=== PATIENT | male | born 1990 | race Caucasian/White ===

== ENCOUNTER 2017-09-07 14:03 | Emergency (ER) | payer SELFPAY ==
[2017-09-07] MEDS ORDERED: ALBUTEROL 2.5 MG/3 ML NEB SOL ONE (17:03)
[2017-09-07] MEDS ORDERED: CEFTRIAXONE 1000 MG/VIAL ONE (17:03)
[2017-09-07] MEDS ORDERED: ONDANSETRON 4 MG (ODT) TAB ONE (17:04)
--- NOTE | 2017-09-07 17:22 | ER ---
Nurse's Notes [facility] Name: Doron Olivera Age: 27 yrs Sex: Male : 1990 Arrival Date: 09/07/2017 Time: 14:07 Bed 12 Private MD: None, None Diagnosis: Pneumonia, unspecified organism Presentation: 09/07 14:27 Presenting complaint: Patient states: woke up Thursday with fever and body aches, hasn't iw stopped since then, also is vomiting and having diarrhea and cough. Transition of care: patient was not received from another setting of care. Onset of symptoms was September 04, 2017. Risk Assessment: Do you want to hurt yourself or someone else? Patient reports no desire to harm self or others. Initial Sepsis Screen: Does the patient meet any 2 criteria? No. Patient's initial sepsis screen is negative. Does the patient have a suspected source of infection? No. Patient's initial sepsis screen is negative. Care prior to arrival: None. 14:27 Method Of Arrival: Ambulatory iw 14:27 Acuity: DANDRE 3 iw Historical: - Allergies: 14:29 NKA; iw - Home Meds: 14:29 None [Active]; iw - PMHx: 14:29 Asthma; iw - PSHx: 14:29 Appendectomy; Knee surgery; iw - Immunization history:: Adult Immunizations not immunized. - Social history:: Smoking status: Patient uses tobacco products, smokes one pack cigarettes per day. - Ebola Screening: : Patient negative for fever greater than or equal to 101.5 degrees Fahrenheit, and additional compatible Ebola Virus Disease symptoms Patient denies exposure to infectious person Patient denies travel to an Ebola-affected area in the 21 days before illness onset No symptoms or risks identified at this time. Screenin:29 Abuse screen: Denies threats or abuse. Denies injuries from another. iw 14:29 Nutritional screening: No deficits noted. iw 16:55 Tuberculosis screening: No symptoms or risk factors identified. aj1 18:00 Fall Risk None identified. aj1 Assessment: 16:55 General: Appears in no apparent distress. uncomfortable, Behavior is calm, cooperative, aj1 appropriate for age. Pain: Complains of pain in generalized body aches Pain does not radiate. Pain currently is 8 out of 10 on a pain scale. Quality of pain is described as aching. Neuro: Level of Consciousness is awake, alert, obeys commands, Oriented to person, place, time, situation. Cardiovascular: Heart tones S1 S2 present Patient's skin is warm and dry. Respiratory: Reports cough that is persistent Airway is patent Respiratory effort is even, unlabored, Respiratory pattern is regular, symmetrical, Breath sounds with wheezes in right upper lobe. GI: Abdomen is non-distended, Bowel sounds present X 4 quads. Abd is soft and non tender X 4 quads. Reports nausea, vomiting. : No signs and/or symptoms were reported regarding the genitourinary system. EENT: Reports sinus congestion, sore throat, ear pain. Derm: No signs and/or symptoms reported regarding the dermatologic system. Skin is pink, warm \T\ dry. normal. Musculoskeletal: No signs and/or symptoms reported regarding the musculoskeletal system. Circulation, motion, and sensation intact. 18:00 Reassessment: Patient appears in no apparent distress at this time. No changes from aj1 previously documented assessment. Patient and/or family updated on plan of care and expected duration. Pain level reassessed. Patient is alert, oriented x 3, equal unlabored respirations, skin warm/dry/pink. Vital Signs: 14:28 BP 121 / 69; Pulse 105; Resp 18 S; Temp 99.1(TE); Pulse Ox 97% on R/A; Weight 81.65 kg; iw Height 5 ft. 11 in. (180.34 cm); Pain 8/10; 16:39 BP 116 / 68; Resp 16; Temp 99.8(TE); iw 17:15 Pulse 92; Pulse Ox 96% on R/A; aj1 14:28 Body Mass Index 25.10 (81.65 kg, 180.34 cm) iw ED Course: 14:07 Patient arrived in ED. mr 14:07 None, None is Private Physician. mr 14:28 Triage completed. iw 14:28 Arm band placed on. iw 16:37 Codie Leal, RN is Primary Nurse. iw 16:39 Edel Luna FNP-C is PHCP. snw 16:39 Armando Lagunas MD is Attending Physician. snw 16:55 Patient has correct armband on for positive identification. Call light in reach. aj1 16:55 No provider procedures requiring assistance completed. aj1 16:57 Patient moved to radiology via wheelchair. kc2 16:57 X-ray completed. Patient tolerated procedure well. kc2 16:57 Patient moved back from radiology. kc2 16:58 Chest Pa And Lat (2 Views) XRAY In Process Unspecified. EDMS 18:00 Patient did not have IV access during this emergency room visit. aj1 Administered Medications: 17:13 Drug: Rocephin (cefTRIAXone) 1 grams Route: IM; Site: right gluteus; aj1 17:14 Drug: Albuterol 2.5 mg Route: Inhalation; aj1 17:14 Drug: Zofran 4 mg Route: PO; aj1 Outcome: 17:22 Discharge ordered by . snw 18:37 Discharged to home ambulatory. aj1 18:37 Condition: good 18:37 Discharge instructions given to patient, Instructed on discharge instructions, follow up and referral plans. medication usage, Demonstrated understanding of instructions, follow-up care, medications, Prescriptions given X 4. 18:38 Patient left the ED. aj1 Signatures: Dispatcher [employer] EDKY Ligia Garcia, RN RN aj1 Edel Luna, BRICKLAYER TENDER-C BRICKLAYER TENDER-Csnw Vicky Velez Irene, RN Lacy Everett2
--- NOTE | 2017-09-07 17:22 | EDPHYS ---
Physician Documentation [facility] Name: Doron Olivera Age: 27 yrs Sex: Male : 1990 Arrival Date: 09/07/2017 Time: 14:07 Bed 12 Private MD: None, None ED Physician Armando Lagunas HPI: 09/07 16:51 This 27 yrs old Male presents to ER via Ambulatory with complaints of Fever, snw Vomiting/Diarrhea. 16:51 The patient reports fever, that was measured at 101 degrees Fahrenheit. Onset: The snw symptoms/episode began/occurred suddenly, and became persistent. Associated signs and symptoms: Pertinent positives: chills, cough, decreased appetite, earache, myalgias, nausea, sinus congestion, sore throat. Severity of symptoms: At their worst the symptoms were moderate. The patient has not experienced similar symptoms in the past, but family has similar symptoms, daughter. The patient has not recently seen a physician. Historical: - Allergies: 14:29 NKA; iw - Home Meds: 14:29 None [Active]; iw - PMHx: 14:29 Asthma; iw - PSHx: 14:29 Appendectomy; Knee surgery; iw - Immunization history:: Adult Immunizations not immunized. - Social history:: Smoking status: Patient uses tobacco products, smokes one pack cigarettes per day. - Ebola Screening: : Patient negative for fever greater than or equal to 101.5 degrees Fahrenheit, and additional compatible Ebola Virus Disease symptoms Patient denies exposure to infectious person Patient denies travel to an Ebola-affected area in the 21 days before illness onset No symptoms or risks identified at this time. ROS: 16:49 Eyes: Negative for injury, pain, redness, and discharge. snw 16:49 Neck: Negative for injury, pain, and swelling. 16:49 Cardiovascular: Negative for chest pain, palpitations, and edema. 16:49 Back: Negative for injury and pain, : Negative for injury, bleeding, discharge, and swelling, MS/Extremity: Negative for injury and deformity, Skin: Negative for injury, rash, and discoloration, Neuro: Negative for headache, weakness, numbness, tingling, and seizure. 16:49 Constitutional: Positive for fatigue, fever, malaise. 16:49 ENT: Positive for ear pain, sinus congestion, sore throat. 16:49 Respiratory: Positive for cough. 16:49 Abdomen/GI: Positive for nausea and vomiting. Exam: 16:44 Head/Face: Normocephalic, atraumatic. Eyes: Pupils equal round and reactive to light, snw extra-ocular motions intact. Lids and lashes normal. Conjunctiva and sclera are non-icteric and not injected. Cornea within normal limits. Periorbital areas with no swelling, redness, or edema. 16:44 Neck: Trachea midline, no thyromegaly or masses palpated, and no cervical lymphadenopathy. Supple, full range of motion without nuchal rigidity, or vertebral point tenderness. No Meningismus. Chest/axilla: Normal chest wall appearance and motion. Nontender with no deformity. No lesions are appreciated. 16:44 Abdomen/GI: Soft, non-tender, with normal bowel sounds. No distension or tympany. No guarding or rebound. No evidence of tenderness throughout. Back: No spinal tenderness. No costovertebral tenderness. Full range of motion. Skin: Warm, dry with normal turgor. Normal color with no rashes, no lesions, and no evidence of cellulitis. MS/ Extremity: Pulses equal, no cyanosis. Neurovascular intact. Full, normal range of motion. Neuro: Awake and alert, GCS 15, oriented to person, place, time, and situation. Cranial nerves II-XII grossly intact. Motor strength 5/5 in all extremities. Sensory grossly intact. Cerebellar exam normal. Normal gait. 16:44 Constitutional: The patient appears alert, awake, uncomfortable. 16:44 ENT: TM's: erythema, that is moderate, bilaterally, Nose: is normal, Mouth: is normal, Posterior pharynx: erythema, that is moderate, Voice: is normal. 16:44 Cardiovascular: Rate: tachycardic. 16:44 Respiratory: the patient does not display signs of respiratory distress, Respirations: normal, Breath sounds: wheezing: that is moderate, is heard in the right upper lobe, bronchitic cough. Vital Signs: 14:28 BP 121 / 69; Pulse 105; Resp 18 S; Temp 99.1(TE); Pulse Ox 97% on R/A; Weight 81.65 kg; iw Height 5 ft. 11 in. (180.34 cm); Pain 8/10; 16:39 BP 116 / 68; Resp 16; Temp 99.8(TE); iw 17:15 Pulse 92; Pulse Ox 96% on R/A; aj1 14:28 Body Mass Index 25.10 (81.65 kg, 180.34 cm) iw MDM: 16:39 Patient medically screened. snw 17:46 Data reviewed: vital signs, nurses notes. Data interpreted: Pulse oximetry: on room air snw is 96 %. Interpretation: acceptable. Counseling: I had a detailed discussion with the patient and/or guardian regarding: the historical points, exam findings, and any diagnostic results supporting the discharge/admit diagnosis, radiology results, the need for outpatient follow up, to return to the emergency department if symptoms worsen or persist or if there are any questions or concerns that arise at home. Special discussion: Based on the history and exam findings, there is no indication for further emergent testing or inpatient evaluation. I discussed with the patient/guardian the need to see the primary care provider for further evaluation of the symptoms. 09/07 16:44 Order name: Chest Pa And Lat (2 Views) XRAY; Complete Time: 17:29 snw Administered Medications: 17:13 Drug: Rocephin (cefTRIAXone) 1 grams Route: IM; Site: right gluteus; aj1 17:14 Drug: Albuterol 2.5 mg Route: Inhalation; aj1 17:14 Drug: Zofran 4 mg Route: PO; aj1 Disposition: 09/08 08:19 Co-signature as Attending Physician, Armando Lagunas MD I agree with the assessment and joon plan of care. Disposition: 09/07/17 17:22 Discharged to Home. Impression: Pneumonia, unspecified organism. - Condition is Stable. - Discharge Instructions: Acute Bronchitis, Nausea and Vomiting, [id number], Cough, Adult, Rehydration, Adult. - Prescriptions for Augmentin 875- 125 mg Oral Tablet - take 1 tablet by ORAL route every 12 hours for 10 days; 20 tablet. Zyrtec 10 mg Oral Tablet - take 1 tablet by ORAL route once daily As needed; 20 tablet. Albuterol Sulfate 90 mcg/actuation - inhale 1-2 puff by INHALATION route every 4-6 hours; 1 Inhaler. promethazine 25 mg Oral Tablet - take 1 tablet by ORAL route every 6 hours As needed; 20 tablet. - Medication Reconciliation Form, Thank You Letter, Antibiotic Education, Prescription Opioid Use form. - Follow up: Private Physician; When: 2 - 3 days; Reason: Recheck today's complaints, Continuance of care, Re-evaluation by your physician. Follow up: Emergency Department; When: As needed; Reason: Worsening of condition. Signatures: Dispatcher [employer] EDLigia Cox RN RN aj1 Armando Lagunas MD MD cha Therrien, Shelly, NEEDLE GRADER-C NEEDLE GRADER-Csnw Codie Leal RN RN iw Corrections: (The following items were deleted from the chart) 09/07 18:38 17:22 09/07/2017 17:22 Discharged to Home. Impression: Pneumonia, unspecified organism. aj1 Condition is Stable. Forms are Medication Reconciliation Form, Thank You Letter, Antibiotic Education, Prescription Opioid Use. Follow up: Private Physician; When: 2 - 3 days; Reason: Recheck today's complaints, Continuance of care, Re-evaluation by your physician. Follow up: Emergency Department; When: As needed; Reason: Worsening of condition. snw
--- NOTE | 2017-09-07 17:28 | RAD REPORT ---
EXAM DESCRIPTION: RAD - Chest Pa And Lat (2 Views) - 09/07/2017 5:00 pm CLINICAL HISTORY: Fever, body aches, cough COMPARISON: None. TECHNIQUE: PA and lateral views of the chest were obtained. FINDINGS: The lungs are clear. Heart size is normal and central vasculature is within normal limit s. No pleural effusion or pneumothorax seen. No acute bony finding noted. No aortic abnormality. IMPRESSION: No acute cardiopulmonary process.
[2017-09-07 18:42] VITALS: BP 116/68; TEMP 99.8
[2017-09-07 18:43] VITALS: O2SAT 96
== END 2017-09-07 18:38 | disposition home or self-care (01) ==
LOC: ER 14:03
DX: J18.9 Pneumonia, unspecified organism (principal); J45.909 Unspecified asthma, uncomplicated; F17.210 Nicotine dependence, cigarettes, uncomplicated
CPT/HCPCS: 71046; 96372; 99284

== ENCOUNTER 2018-10-18 20:55 | Emergency (ER) | payer SELFPAY ==
[2018-10-18] MEDS ORDERED: BUPIVACAINE 0.5% PF 10 ML VIAL ONE (21:39)
[2018-10-18] MEDS ORDERED: LIDOCAINE 2% W/EPI 1:200,000 MPF 20 ML VIAL IM ONE (21:39)
--- NOTE | 2018-10-18 21:46 | ER ---
Nurse's Notes [facility] Name: Doron Olivera Age: 28 yrs Sex: Male : 1990 Arrival Date: 10/18/2018 Time: 20:59 Bed 24 Private MD: Diagnosis: Right ear pain;dental caries Presentation: 10/18 21:30 Presenting complaint: Patient states: Pain to right ear, severe pain to left upper part lp1 of mouth, dental pain; Patient states plan to have tooth pulled. Transition of care: patient was not received from another setting of care. Onset of symptoms was October 18, 2018. Risk Assessment: Do you want to hurt yourself or someone else? Patient reports no desire to harm self or others. Initial Sepsis Screen: Does the patient meet any 2 criteria? No. Patient's initial sepsis screen is negative. Does the patient have a suspected source of infection? No. Patient's initial sepsis screen is negative. Care prior to arrival: None. 21:30 Method Of Arrival: Ambulatory lp1 21:30 Acuity: DANDRE 4 lp1 Historical: - Allergies: 21:33 NKA; lp1 - Home Meds: 21:33 Albuterol Inhl [Active]; lp1 - PMHx: 21:33 Asthma; lp1 - PSHx: 21:33 Appendectomy; Knee surgery; lp1 - Immunization history:: Adult Immunizations up to date. - Social history:: Smoking status: Patient uses tobacco products, smokes one pack cigarettes per day. - Ebola Screening: : No symptoms or risks identified at this time. Screenin:34 Abuse screen: Denies threats or abuse. Denies injuries from another. Nutritional lp1 screening: No deficits noted. Tuberculosis screening: No symptoms or risk factors identified. Fall Risk None identified. Assessment: 21:33 General: Appears uncomfortable, Behavior is calm, cooperative, appropriate for age. lp1 Pain: Complains of pain in upper left second molar Pain currently is 10 out of 10 on a pain scale. Quality of pain is described as sharp, stabbing. Neuro: No deficits noted. Cardiovascular: No deficits noted. Respiratory: No deficits noted. GI: No deficits noted. : No deficits noted. EENT: Oral mucosa is moist. Dental caries noted in upper left second molar (#15) Reports pain in upper left second molar. Derm: Skin is pink, warm \T\ dry. Musculoskeletal: No deficits noted. 22:01 Reassessment: Patient appears in no apparent distress at this time. Patient is alert, ca1 oriented x 3, equal unlabored respirations, skin warm/dry/pink. Patient states feeling better. Vital Signs: 21:32 BP 130 / 93; Pulse 88; Resp 16; Temp 99(O); Pulse Ox 100% on R/A; Weight 90.72 kg; lp1 Height 5 ft. 11 in. (180.34 cm); Pain 10/10; 22:01 BP 138 / 86; Pulse 83; Resp 17 S; Pulse Ox 100% on R/A; ca1 21:32 Body Mass Index 27.89 (90.72 kg, 180.34 cm) lp1 ED Course: 20:59 Patient arrived in ED. es 21:09 Jason Berrios MD is Attending Physician. ps1 21:12 Attending Physician role handed off by Jason Berrios MD [facility] 21:12 Armando Lagunas MD is Attending Physician. [facility] 21:30 Sharon Childers, RN is Primary Nurse. lp1 21:31 Triage completed. lp1 21:34 Patient has correct armband on for positive identification. lp1 21:34 Assist provider with nerve block (dental) Set up for procedure. Performed by Jason Berrios MD Patient tolerated well. Patient did not have IV access during this emergency room visit. 21:35 Arm band placed on. lp1 21:38 Attending Physician role handed off by Armando Lagunas MD [facility] 21:38 Jason Berrios MD is Attending Physician. ps1 Administered Medications: 21:32 Drug: Lidocaine-Epinephrine -2 % (1:100,000) 10 ml Route: Infiltration; lp1 21:32 Drug: Bupivacaine (0.5 %) 1 vials Volume: 10 ml; Route: Infiltration; lp1 Outcome: 21:45 Discharge ordered by . ps1 22:02 Discharged to home ambulatory, with significant other. ca1 22:02 Condition: stable 22:02 Discharge instructions given to patient, Instructed on discharge instructions, follow up and referral plans. medication usage, Demonstrated understanding of instructions, follow-up care, medications, Prescriptions given X 3. 22:02 Patient left the ED. ca1 Signatures: Armando Lagunas MD MD cha Salyer, Edna es Pena, Laura MANPREET RN lp1 Jason Berrios MD MD ps1 Fern Barrios RN RN ca1 Corrections: (The following items were deleted from the chart) 21:33 Pain: Complains of pain in upper left second molar Pain currently is 10 out of 10 lp1 on a pain scale. Quality of pain is described as sharp, stabbing, lp1 35 21:33 EENT: Oral mucosa is moist. Dental caries noted in upper left second molar (#15) lp1 lp1
--- NOTE | 2018-10-18 21:46 | EDPHYS ---
Physician Documentation [facility] Name: Doron Olivera Age: 28 yrs Sex: Male : 1990 Arrival Date: 10/18/2018 Time: 20:59 Bed 24 Private MD: ED Physician Jason Berrios HPI: 10/18 21:38 This 28 yrs old Male presents to ER via Ambulatory with complaints of ps1 Toothache, Ear Pain. 21:38 patient has pain to upper left molar and left ear. No popping or MARKEL. Has a history of ps1 poor dentition. No fever or drainage. Pain rated as moderate. Worse with hot and cold. . Historical: - Allergies: 21:33 NKA; lp1 - Home Meds: 21:33 Albuterol Inhl [Active]; lp1 - PMHx: 21:33 Asthma; lp1 - PSHx: 21:33 Appendectomy; Knee surgery; lp1 - Immunization history:: Adult Immunizations up to date. - Social history:: Smoking status: Patient uses tobacco products, smokes one pack cigarettes per day. - Ebola Screening: : No symptoms or risks identified at this time. ROS: 21:38 Constitutional: Negative for fever, chills, and weight loss, Eyes: Negative for injury, ps1 pain, redness, and discharge, Cardiovascular: Negative for chest pain, palpitations, and edema, Respiratory: Negative for shortness of breath, cough, wheezing, and pleuritic chest pain, Abdomen/GI: Negative for abdominal pain, nausea, vomiting, diarrhea, and constipation, MS/Extremity: Negative for injury and deformity, Skin: Negative for injury, rash, and discoloration, Neuro: Negative for headache, weakness, numbness, tingling, and seizure. 21:38 ENT: Positive for dental pain, ear pain. Exam: 21:38 Constitutional: This is a well developed, well nourished patient who is awake, alert, ps1 and in no acute distress. Head/Face: Normocephalic, atraumatic. Eyes: Pupils equal round and reactive to light, extra-ocular motions intact. Lids and lashes normal. Conjunctiva and sclera are non-icteric and not injected. Chest/axilla: Normal chest wall appearance and motion. Nontender with no deformity. No lesions are appreciated. Cardiovascular: Regular rate and rhythm. No gallops, murmurs, or rubs. Normal PMI, no JVD. No pulse deficits. Respiratory: Lungs have equal breath sounds bilaterally, clear to auscultation and percussion. No rales, rhonchi or wheezes noted. No increased work of breathing, no retractions or nasal flaring. Abdomen/GI: Soft, non-tender, with normal bowel sounds. No distension or tympany. No guarding or rebound. No evidence of tenderness throughout. MS/ Extremity: Pulses equal, no cyanosis. Neurovascular intact. Full, normal range of motion. Neuro: Awake and alert, GCS 15, oriented to person, place, time, and situation. Cranial nerves II-XII grossly intact. Sensory grossly intact. 21:38 ENT: External ear(s): are unremarkable, Ear canal(s): are normal, TM's: erythema, that is mild, on the right, Dental exam: dental caries, that is moderate, diffusely, fractured teeth are noted, specifically the upper left first molar (#14) and upper left second molar (#15). Vital Signs: 21:32 BP 130 / 93; Pulse 88; Resp 16; Temp 99(O); Pulse Ox 100% on R/A; Weight 90.72 kg; lp1 Height 5 ft. 11 in. (180.34 cm); Pain 10/10; 22:01 BP 138 / 86; Pulse 83; Resp 17 S; Pulse Ox 100% on R/A; ca1 21:32 Body Mass Index 27.89 (90.72 kg, 180.34 cm) lp1 Procedures: 21:38 Nerve block: (dental) of periapical block, superior alveolar nerve left. Medication: ps1 Lidocaine 2% with epinephrine, Marcaine 0.5%, Amount: 4 mls were injected, Effect: the patient has resolution of the pain, Performed by Jason Berrios MD Patient tolerated well. MDM: 21:19 Patient medically screened. [facility] 21:38 Data reviewed: vital signs, nurses notes, and as a result, I will discharge patient. ps1 Counseling: I had a detailed discussion with the patient and/or guardian regarding: the historical points, exam findings, and any diagnostic results supporting the discharge/admit diagnosis, the need for outpatient follow up, to return to the emergency department if symptoms worsen or persist or if there are any questions or concerns that arise at home. Administered Medications: 21:32 Drug: Lidocaine-Epinephrine -2 % (1:100,000) 10 ml Route: Infiltration; lp1 21:32 Drug: Bupivacaine (0.5 %) 1 vials Volume: 10 ml; Route: Infiltration; lp1 Disposition: 10/18/18 21:45 Discharged to Home. Impression: Right ear pain, dental caries. - Condition is Stable. - Discharge Instructions: Dental Pain. - Prescriptions for chlorhexidine gluconate 0.12 % Mucous Membrane mouthwash - place 15 milliliter by MUCOUS MEMBRANE route 2 times per day after brushing teeth, swish in mouth for 30 seconds then spit out; 450 milliliter. Clindamycin HCl 300 mg Oral Capsule - take 1 capsule by ORAL route every 6 hours for 10 days; 40 capsule. Tylenol- Codeine #3 300-30 mg Oral Tablet - take 2 tablet by ORAL route every 6 hours As needed; 30 tablet. - Medication Reconciliation Form, Thank You Letter, Antibiotic Education, Prescription Opioid Use form. - Follow up: Emergency Department; When: As needed; Reason: Fever > 102 F, Worsening of condition. Follow up: Private Physician; When: 1 - 2 days; Reason: Further diagnostic work-up. - Problem is chronic. - Symptoms have improved. Signatures: Armando Lagunas MD MD cha Pena, Laura, MANPREET RN lp1 Jason Berrios MD MD ps1 Fern Barrios RN RN ca1 Corrections: (The following items were deleted from the chart) 22:02 21:45 10/18/2018 21:45 Discharged to Home. Impression: Right ear pain; dental caries. ca1 Condition is Stable. Forms are Medication Reconciliation Form, Thank You Letter, Antibiotic Education, Prescription Opioid Use. Follow up: Emergency Department; When: As needed; Reason: Fever > 102 F, Worsening of condition. Follow up: Private Physician; When: 1 - 2 days; Reason: Further diagnostic work-up. Problem is chronic. Symptoms have improved. ps1
[2018-10-18 22:36] VITALS: TEMP 99; O2SAT 100
[2018-10-18 22:37] VITALS: BP 138/86
== END 2018-10-18 22:02 | disposition home or self-care (01) ==
LOC: ER 20:55
DX: K02.9 Dental caries, unspecified (principal); J45.909 Unspecified asthma, uncomplicated; F17.210 Nicotine dependence, cigarettes, uncomplicated
CPT/HCPCS: 99283